=== PATIENT | female | born 1985 | race Caucasian/White ===

== ENCOUNTER 2021-01-06 10:48 | Day surgery (SDC) | payer OTHER ==
[2021-01-01 14:01] LABS: Hemoglobin 13.4 g/dL (12.0-15.5); Mean Corpuscular HGB CONC 32.2 g/dL (32.0-36.0); Mean Corpuscular Hemoglobin 29.1 pg (27.0-33.0); Mean Corpuscular Volume 90.2 fl (81.6-98.3); Platelet Count 189 10x3/uL (150-450); RBC Distribution Width 12.3 % (11.5-14.5); Red Blood Cell (RBC) Count 4.61 10x6/uL (3.90-5.03); White Blood Cell (WBC) Count 6.6 10x3/uL (3.5-10.5)
[2021-01-01 23:06] LABS: SARS-CoV-2 PCR by NAA Not Detected (NotDetected)
[2021-01-05 13:27] VITALS: BMI 26.4
[2021-01-06] MEDS ORDERED: Lidocaine 1% MPF 2 ML VIAL ONE (10:49)
[2021-01-06] MEDS ORDERED: PROPOFOL 20 ML ONE ×2 (11:28→12:14)
[2021-01-06] MEDS ORDERED: Fentanyl 100 MCG/2 ML VIAL ONE (11:28)
[2021-01-06] MEDS ORDERED: Dexamethasone 20 MG/5 ML VIAL ONE (11:30)
[2021-01-06] MEDS ORDERED: Metoclopramide HCl 10 MG/2 ML VIAL ONE (11:30)
[2021-01-06] MEDS ORDERED: Lidocaine 1% PF 5 ML VIAL ONE (11:30)
[2021-01-06] MEDS ORDERED: Ondansetron PF 4 MG/2 ML Vial ONE (11:30)
[2021-01-06] MEDS ORDERED: diphenhydrAMINE 50 MG/ML VIAL ONE (12:21)
== END 2021-01-06 15:10 | disposition home or self-care (01) ==
LOC: CSHSDC 10:48
PROVIDERS: ATTEND Obstetrics & Gynecology
PROC: 10D17ZZ Extraction of Products of Conception, Retained, Via Natural or Artificial Opening (ICD-10-PCS; principal; 2021-01-06)
DX: O02.1 Missed abortion (principal); Z79.899 Other long term (current) drug therapy; Z88.1 Allergy status to other antibiotic agents; Z88.8 Allergy status to other drugs, medicaments and biological substances; Z20.822 Contact with and (suspected) exposure to COVID-19
CPT/HCPCS: 85027; 86850; 86900; 86901; 87635; 88305; J0690; J1100; J1200; J2405; J2704; J2765; J3010; U0003; U0005

== ENCOUNTER 2021-07-28 19:04 | Day surgery (SDC) | payer OTHER ==
[2021-07-28 19:40] VITALS: BMI 27.9
[2021-07-28] MEDS ORDERED: hydrALAZINE 20 MG/ML VIAL SLOW IVP PRN (19:47)
[2021-07-28] MEDS ORDERED: Lactated Ringer's 1,000 ML IV SCH ×3 (20:15→22:30)
[2021-07-28] MEDS ORDERED: Ondansetron PF 4 MG/2 ML Vial IVP PRN (20:51)
[2021-07-28 23:04] LABS: Bilirubin Neg (Negative); Blood, Urine 10 (Negative); Clarity Clear (Clear); Glucose, Urine (Dipstick) Normal (Negative); Ketone, Urine 15 mg/dL (Negative); Leukocyte Negative (Negative); Nitrite Negative (Negative); Protein, Urine (Dipstick) Negative (Neg-Trace); Specific Gravity, Urine 1.005 (1.002-1.036); Urobilinogen Normal mg/dL (Less than 2)
[2021-07-28 23:06] LABS: Urine Culture Reflex No No
[2021-07-28 23:11] LABS: Bacteria/HPF 1+ HPF (None Seen); RBC/HPF 0-3 HPF (0-3); Squamous Epithelial 0-3 HPF (0-3); WBC/HPF 0-3 HPF (0-3)
[2021-07-28] MEDS ORDERED: Acetaminophen 500 MG TAB PO SCH (23:30)
== END 2021-07-29 00:03 | disposition home or self-care (01) ==
LOC: CSHLD/OP 19:04
PROVIDERS: ATTEND Obstetrics & Gynecology
DX: O47.02 False labor before 37 completed weeks of gestation, second trimester (principal); O99.282 Endocrine, nutritional and metabolic diseases complicating pregnancy, second trimester; O99.612 Diseases of the digestive system complicating pregnancy, second trimester; O23.42 Unspecified infection of urinary tract in pregnancy, second trimester; O34.219 Maternal care for unspecified type scar from previous cesarean delivery; O09.522 Supervision of elderly multigravida, second trimester; E86.0 Dehydration; K52.9 Noninfective gastroenteritis and colitis, unspecified; N85.8 Other specified noninflammatory disorders of uterus; Z3A.25 25 weeks gestation of pregnancy; Z79.899 Other long term (current) drug therapy; Z87.59 Personal history of other complications of pregnancy, childbirth and the puerperium; Z90.49 Acquired absence of other specified parts of digestive tract; Z88.5 Allergy status to narcotic agent; Z88.4 Allergy status to anesthetic agent
CPT/HCPCS: 81001; 87086; 87480; 87510; 87660; 96360; 96361; 99284; J2405

== ENCOUNTER 2021-09-17 20:38 | Day surgery (SDC) | payer OTHER ==
[2021-09-17 21:06] VITALS: BMI 29.6
[2021-09-17] MEDS ORDERED: hydrALAZINE 20 MG/ML VIAL SLOW IVP PRN (21:59)
[2021-09-17 22:32] LABS: Bilirubin Neg (Negative); Blood, Urine 25 (Negative); Clarity Cloudy (Clear); Glucose, Urine (Dipstick) Normal (Negative); Ketone, Urine Negative (Negative); Leukocyte Negative (Negative); Nitrite Negative (Negative); Protein, Urine (Dipstick) Negative (Neg-Trace); Specific Gravity, Urine 1.015 (1.002-1.036); Urobilinogen Normal mg/dL (Less than 2)
[2021-09-17 22:37] LABS: FFN Internal QC Analyzer PASS (PASS); Fetal Fibronectin Negative (Negative)
[2021-09-17 22:40] LABS: Bacteria/HPF 2+ HPF (None Seen); Squamous Epithelial 0-3 HPF (0-3); WBC/HPF 0-3 HPF (0-3)
== END 2021-09-17 23:30 | disposition home or self-care (01) ==
LOC: CSHLD/OP 20:38
PROVIDERS: ATTEND Obstetrics & Gynecology
DX: O26.853 Spotting complicating pregnancy, third trimester (principal); O09.213 Supervision of pregnancy with history of pre-term labor, third trimester; O09.523 Supervision of elderly multigravida, third trimester; Z3A.32 32 weeks gestation of pregnancy; Z88.1 Allergy status to other antibiotic agents; Z88.8 Allergy status to other drugs, medicaments and biological substances
CPT/HCPCS: 81001; 82731; 87480; 87510; 87660

== ENCOUNTER 2021-11-01 13:54 | Outpatient (CLI) | payer OTHER ==
[2021-11-01 17:21] LABS: Hemoglobin 10.7 g/dL (12.0-15.5); Mean Corpuscular HGB CONC 32.8 g/dL (32.0-36.0); Mean Corpuscular Hemoglobin 28.1 pg (27.0-33.0); Mean Corpuscular Volume 85.6 fl (81.6-98.3); Mean Platelet Volume 12.2 fl (7.4-10.4); Platelet Count 159 10x3/uL (150-450); RBC Distribution Width 12.9 % (11.5-14.5); Red Blood Cell (RBC) Count 3.81 10x6/uL (3.90-5.03); White Blood Cell (WBC) Count 8.2 10x3/uL (3.5-10.5)
[2021-11-01 17:56] LABS: Hep B Surf Ag Non-Reactive S/CO (NonReactive)
[2021-11-02 13:25] LABS: Syphilis Antibody Nonreactive (Nonreactive); Syphilis Antibody Index 0.15 S/CO (<1.00 Non-Reactive)
[2021-11-02 15:28] LABS: SARS-CoV-2 PCR by NAA DETECTED (NotDetected)
== END 2021-11-01 13:55 | disposition home or self-care (01) ==
LOC: CSHLAB 13:54
PROVIDERS: ATTEND Obstetrics & Gynecology
DX: U07.1 COVID-19 (principal)
CPT/HCPCS: 85027; 86780; 86900; 86901; 87340; U0003; U0005

== ENCOUNTER 2021-11-03 05:45 | Inpatient (IN) | payer OTHER ==
[2021-11-03 06:32] VITALS: BMI 31.1
[2021-11-03] MEDS ORDERED: Famotidine/PF 20 mg/2ml Vial SLOW IVP PRN (07:49)
[2021-11-03] MEDS ORDERED: Promethazine HCl 25 MG/ML VIAL IM PRN (07:49)
[2021-11-03] MEDS ORDERED: hydrALAZINE 20 MG/ML VIAL SLOW IVP PRN ×2 (07:49→13:34)
[2021-11-03] MEDS ORDERED: Bicitra 30 ML UDCUP PO PRN (07:49)
[2021-11-03] MEDS ORDERED: Ondansetron PF 4 MG/2 ML Vial IVP PRN (07:49)
[2021-11-03] MEDS ORDERED: ceFAZolin 2 GM/Dextrose 50 ML 2 GM in Premix Bag 1 BAG IVPB SCH (08:00)
[2021-11-03] MEDS ORDERED: Morphine PF 10 MG/10 ML VIAL ONE (09:01)
[2021-11-03] MEDS ORDERED: Dexamethasone 4 mg/ml Vial ONE (09:03)
[2021-11-03] MEDS ORDERED: Phenylephrine 40 MG/NS 250 ML 250 ML ONE (09:03)
[2021-11-03] MEDS ORDERED: Ondansetron PF 4 MG/2 ML Vial ONE (09:03)
[2021-11-03] MEDS ORDERED: Metoclopramide HCl 10 MG/2 ML VIAL ONE (09:03)
[2021-11-03] MEDS ORDERED: Oxytocin 10 UNITS/ML VIAL ONE (09:03)
[2021-11-03] MEDS ORDERED: Phytonadione Neonatal 1 MG/0.5 ML AMP ONE (10:11)
[2021-11-03] MEDS ORDERED: Promethazine HCl 25 MG SUPP PR PRN (10:16)
[2021-11-03] MEDS ORDERED: diphenhydrAMINE 50 MG/ML VIAL IVP PRN (10:16)
[2021-11-03] MEDS ORDERED: Naloxone HCl 0.4 mg/ml Vial IV PRN (10:16)
[2021-11-03] MEDS ORDERED: L&D-Morphine 4 MG/ML VIAL SLOW IVP PRN (10:16)
[2021-11-03] MEDS ORDERED: Hydrocerin (Eucerin) Cream 120 gm Jar TOP PRN (10:16)
[2021-11-03] MEDS ORDERED: Ondansetron HCl/PF 4 MG/2 ML Vial IVP PRN (10:16)
[2021-11-03] MEDS ORDERED: Meperidine HCl/PF 25 MG/ML VIAL SLOW IVP PRN (10:16)
[2021-11-03] MEDS ORDERED: Naloxone HCl 0.4 mg/ml Vial IVP PRN ×2 (10:16)
[2021-11-03] MEDS ORDERED: Fentanyl 100 MCG/2 ML VIAL SLOW IVP PRN (10:16)
[2021-11-03] MEDS ORDERED: Ketorolac Tromethamine 30 MG/ML VIAL IVP SCH (10:30)
[2021-11-03] MEDS ORDERED: Communication Order-Pharmacy FS SCH (10:30)
[2021-11-03] MEDS: Ketorolac Tromethamine 30 MG/ML VIAL IVP PRN ×2 (10:40→17:11)
[2021-11-03] MEDS ORDERED: Misoprostol 200 MCG TAB PR PRN (13:34)
[2021-11-03] MEDS ORDERED: Simethicone Chewable 80 MG TAB PO PRN (13:34)
[2021-11-03] MEDS ORDERED: Lanolin Ointment 7 GM TUBE TOP PRN (13:34)
[2021-11-03] MEDS ORDERED: diphenhydrAMINE 25 MG CAP PO PRN (13:34)
[2021-11-03] MEDS ORDERED: Acetaminophen 325 MG TAB PO PRN (13:34)
[2021-11-03] MEDS: Promethazine HCl 25 MG/ML VIAL IM PRN (13:40)
[2021-11-03] MEDS: Docusate 100 MG CAP PO SCH (21:40)
[2021-11-03] MEDS: Ondansetron PF 4 MG/2 ML Vial IVP PRN (21:41)
[2021-11-03] MEDS: HYDROcodone/Acetaminophen 5/325 mg Tablet PO PRN (21:41)
[2021-11-03] MEDS ORDERED: HYDROcodone/Acetaminophen 5/325 mg Tablet PO PRN (22:30)
[2021-11-04] MEDS: HYDROcodone/Acetaminophen 5/325 mg Tablet PO PRN ×4 (04:37→21:23)
[2021-11-04] MEDS: Ondansetron PF 4 MG/2 ML Vial IVP PRN (04:37)
[2021-11-04 05:06] LABS: Hemoglobin 9.2 g/dL (12.0-15.5); Mean Corpuscular HGB CONC 31.9 g/dL (32.0-36.0); Mean Corpuscular Hemoglobin 28.1 pg (27.0-33.0); Mean Corpuscular Volume 88.1 fl (81.6-98.3); Mean Platelet Volume 12.3 fl (7.4-10.4); Platelet Count 153 10x3/uL (150-450); RBC Distribution Width 12.8 % (11.5-14.5); Red Blood Cell (RBC) Count 3.27 10x6/uL (3.90-5.03); White Blood Cell (WBC) Count 10.6 10x3/uL (3.5-10.5)
[2021-11-04] MEDS: Docusate 100 MG CAP PO SCH ×2 (08:21→21:23)
[2021-11-04] MEDS ORDERED: Boostrix 0.5 ML (Tdap) VIAL IM ONE (13:34)
[2021-11-04] MEDS ORDERED: Ibuprofen 800 MG TAB PO SCH (14:00)
[2021-11-04] MEDS: Promethazine HCl 25 MG/ML VIAL IM PRN (18:08)
[2021-11-04] MEDS: Ketorolac Tromethamine 30 MG/ML VIAL IM PRN (18:09)
[2021-11-05] MEDS: HYDROcodone/Acetaminophen 5/325 mg Tablet PO PRN ×4 (01:56→19:03)
[2021-11-05] MEDS: Promethazine HCl 25 MG/ML VIAL IM PRN ×3 (01:57→20:50)
[2021-11-05] MEDS: Ketorolac Tromethamine 30 MG/ML VIAL IM PRN ×4 (03:14→20:50)
[2021-11-05] MEDS: Docusate 100 MG CAP PO SCH ×2 (08:08→20:51)
[2021-11-06] MEDS: Promethazine HCl 25 MG/ML VIAL IM PRN (01:19)
[2021-11-06] MEDS: Ketorolac Tromethamine 30 MG/ML VIAL IM PRN ×2 (02:54→10:55)
[2021-11-06] MEDS: Docusate 100 MG CAP PO SCH (08:23)
[2021-11-06] MEDS: HYDROcodone/Acetaminophen 5/325 mg Tablet PO PRN ×2 (08:31)
[2021-11-06 10:59] VITALS: BP 135/81; TEMP 98.3
== END 2021-11-06 13:30 | disposition home or self-care (01) | DRG 786 ==
LOC: CSHLD 05:45 → CSHANTE 11:25
PROVIDERS: ADMIT Obstetrics & Gynecology; ATTEND Obstetrics & Gynecology
PROC: 10D00Z1 Extraction of Products of Conception, Low, Open Approach (ICD-10-PCS; principal; 2021-11-03)
DX: O34.211 Maternal care for low transverse scar from previous cesarean delivery (principal); U07.1 COVID-19; O98.52 Other viral diseases complicating childbirth; Z3A.39 39 weeks gestation of pregnancy; Z37.0 Single live birth
CPT/HCPCS: 36415; 51702; 85027; 86780; 86850; 86900; 86901; 87077; 87086; 87186; 87340; J0690; J1100; J1885; J2274; J2405; J2550; J2590; J2765; S0028; U0003; U0005